=== PATIENT | female | born 1990 | race African-American/Black ===

== ENCOUNTER 2018-10-19 01:59 | Emergency (ER) | payer OTHER ==
[2018-10-19] MEDS: predniSONE 20 MG TAB PO (04:39)
[2018-10-19] MEDS: IPRATROPIUM (NEB) 0.5 MG/2.5 ML AMP HHN (04:45)
[2018-10-19] MEDS: ALBUTEROL 0.083% (NEB) 2.5 MG/3 ML AMP HHN (04:45)
== END 2018-10-19 05:42 | disposition home or self-care (01) ==
LOC: FTE 05:42
DX: J45.901 Unspecified asthma with (acute) exacerbation (principal); Z91.040 Latex allergy status
CPT/HCPCS: 94664; 99283-25